=== PATIENT | female | born 1985 | race Two or more races ===

== ENCOUNTER 2022-04-29 14:51 | Emergency (ER) | payer OTHER ==
[~2022-04-29] VITALS: Ht 157.5 cm; Wt 78.9 kg
[2022-04-29] MEDS ORDERED: MEDROLPACK PO (19:03)
[2022-04-29] MEDS ORDERED: ZITHROMAX500 MG PO (19:03)
== END 2022-04-29 19:30 | disposition home or self-care (01) ==
LOC: ER 14:51
DX: R51.9 Headache, unspecified (principal); Z20.828 Contact with and (suspected) exposure to other viral communicable diseases